=== PATIENT | female | born 1970 | race Caucasian/White ===

== ENCOUNTER 2017-12-17 07:41 | Emergency (ER) | payer BC ==
[~2017-12-17] VITALS: Ht 152.4 cm; Wt 70.0 kg
[~2017-12-17 07:41] MED LIST: DIFLUCAN150 MG PO
[2017-12-17 08:13] VITALS: BP 142/87
[2017-12-17] MEDS ORDERED: TORADOL PO (08:20)
[2017-12-17] MEDS ORDERED: AMOXICILLIN500 M2 PO (08:20)
[2017-12-17] MEDS ORDERED: ZOFRAN4 MG/TAB PO (08:20)
== END 2017-12-17 08:39 | disposition home or self-care (01) | DRG 159 ==
LOC: ED 07:41
DX: K04.7 Periapical abscess without sinus (principal); F17.210 Nicotine dependence, cigarettes, uncomplicated